=== PATIENT | male | born 1980 | race Caucasian/White ===

== ENCOUNTER 2025-03-23 19:35 | Emergency (ER) | payer BC, SELFPAY ==
[2025-03-23 19:38] VITALS: BP 118/69
[2025-03-23] MEDS: ADACEL 0.5 ML IM (20:32)
--- NOTE | 2025-03-23 22:56 | ED.SKININJ ---
HPI-Injury
General
Chief Complaint: Skin Surface Trauma
Source: patient
Exam Limitations: none
Time Seen by Provider: 03/23/25 20:10
Nursing documentation reviewed up to this point in time: agreed with
History of Present Illness-Injury
Is this injury a work related problem?: No
Is pt an associate of [facility]/[employer]?: No
Initial Injury comments:
Accidentally cut finger with knife. Laceration to left distal index finger. Injury occurred tonight Brought self to ED for eval.
Past History
Past History
ED Past Medical History: None
Review of Systems
Review of Systems
Allergies reviewed?: Yes
All Other Systems: ROS reviewed and negative except as documented in HPI and ROS
Constitutional: Reports no symptoms
Musculoskeletal: Reports no symptoms
Skin: Reports other (laceration left distal index finger)
Neurological: Reports no symptoms
Psychiatric: Reports no symptoms
Skin Exam
Laceration
Left Distal Second Finger:
Length in cm: 1.5
Orientation: C shaped
Type of Laceration: simple
Any active bleeding?: low grade venous oozing
Distal skin color and temperature: normal-warm & good color
Normal distal neurovascular exam: Yes
Range of motion: full
Phy Exam
General Physical Exam
General Presentation: well appearing and no apparent distress
General age: appears stated age
General Skin: warm and dry
General Habitus: normal
General Mental: alert
Musculoskeletal Exam
Musculoskeletal Exam: full ROM and neuro vasc intact
Skin Exam
Skin Exam: normal color, warm/dry and no rash
Psychiatric Exam
Psychiatric Exam: normal mood/affect
Course
Orders/Labs/Results
Orders:
Orders
03/23/25 20:27
Tetanus/Diphth/Acelpertussis [Adacel] 0.5 ml IM .ONCE ONE
Vital Signs
Initial and Last Documented VS:
Initial Vital Signs
Temp Pulse Resp BP Pulse Ox
98.2 F 74 17 118/69 99
03/23/25 19:38 03/23/25 19:38 03/23/25 19:38 03/23/25 19:38 03/23/25 19:38
Last Documented Vital Signs
Temp Pulse Resp BP Pulse Ox
98.2 F 74 17 118/69 99
03/23/25 19:38 03/23/25 19:38 03/23/25 19:38 03/23/25 19:38 03/23/25 22:59
Procedures
Laceration Closure
Left Distal Second Finger:
Status of Wound: clean
Description of Wound Edges: sharp
Preparation: cleaned with saline and cleaned with Betadine
Revision/Debridement: routine- no revision
Type of Closure: Dermabond-skin glue
*Pulse Oximetry
SaO2: 99
Oxygen Mode of Delivery: Room air
Patient hypoxic: no
*Critical Care Note
Total Time (30-74mins, 75-104mins- exclusive of procedures): Not Applicable
ED Attending Note
-
Portions of this chart may have been created with voice recognition software.� Occasional wrong word or��sound alike� substitutions may have occurred due to the inherent limitations of voice recognition software.
Discharge Plan
Departure
Patient Disposition: Home (Routine Discharge)
Date of Disposition: 03/23/25
Time of Disposition: 20:27
Patient with high blood pressure during this ER visit?: No
Condition: Good
Covid-19: Not Applicable
Discharge Problem:
Finger laceration
Instructions: Laceration Repair With Glue (DC)
Activity Restrictions/Additional Instructions:
Keep wound dry. Do not remove tape strips.
Interventions
Interventions:
*Risk Screen - Suicide Last Done: 03/23/25 19:39
*General Assessment Last Done: 03/23/25 19:39
*Neglect/Abuse Screening Last Done: 03/23/25 19:39
*ED- Fall Risk Assessment Last Done: 03/23/25 20:09
*ED COVID-19 Vaccine History Last Done: 03/23/25 19:39
*Nursing Disposition Last Done: 03/23/25 20:50
ED-Skin Assessment Last Done: 03/23/25 20:09
Discharge Date and Time
Discharge Date/Time: 03/23/25 20:51
Print Language: BELARUSIAN
== END 2025-03-23 20:51 | disposition home or self-care (01) ==
LOC: EMR 19:35
PROVIDERS: EMERGENCY PHYSICIAN Emergency Medicine; FAMILY PHYSICIAN Nurse Practitioner Gerontology
DX: S61.211A Laceration without foreign body of left index finger without damage to nail, initial encounter (principal); W26.0XXA Contact with knife, initial encounter; Z23 Encounter for immunization
CPT/HCPCS: 90471; 12001; 99282; 90715